=== PATIENT | female | born 1980 | race Caucasian/White ===

== ENCOUNTER → 2021-06-21 14:00 | Outpatient (CLI) | payer OTHER, SELFPAY ==
--- NOTE | ~2021-06-21 | MM_ITS ---
EXAMINATION: MM scrn kiah implant BI w adilene HISTORY: Screening mammogram TECHNIQUE: Craniocaudal and mediolateral oblique 3-D tomosynthesis images with implant displacement a nd synthetic 2-D images were generated. Craniocaudal and mediolateral oblique views of the breasts wi thout implant displacement were obtained using full field digital mammography. CAD analysis was submi tted and interpreted. COMPARISON: No prior mammogram is available for comparison at this institution. BREAST PARENCHYMAL COMPOSITION: There are scattered areas of fibroglandular density. FINDINGS: There is focal asymmetry in the upper outer quadrant of the right breast near the areola. T here are no suspicious masses, calcifications or architectural distortion breast to suggest malignanc y. There are subpectoral breast implants. IMPRESSION: 1. Focal right breast asymmetry upper outer quadrant near the areola. 2. Additional mammographic views and possible breast ultrasound are recommended. BI-RADS Category 0: Incomplete: Needs additional imaging evaluation. Reviewed, dictated and finalized at location A. IMPRESSION: 1. Focal right breast asymmetry upper outer quadrant near the areola. 2. Additional mammographic views and possible breast ultrasound are recommended . BI-RADS Category 0: Incomplete: Needs additional imaging evaluation.
== END ==
PROVIDERS: PCP Family Medicine; Visit Provider Family Medicine
DX: Z12.31 Encounter for screening mammogram for malignant neoplasm of breast (principal); R92.8 Other abnormal and inconclusive findings on diagnostic imaging of breast
CPT/HCPCS: 77063; 77067

== ENCOUNTER → 2021-07-02 14:13 | Outpatient (CLI) | payer OTHER, SELFPAY ==
--- NOTE | ~2021-07-02 | US_ITS ---
EXAMINATION: US pelvic complete DATE: 07/02/2021 14:42 INDICATION: Abnormal uterine bleeding. TECHNIQUE: Multiple transabdominal sonographic images of the pelvis were obtained. COMPARISON: None. FINDINGS: The uterus measures 8.7 x 4.2 x 4.5 cm. There is no free fluid in the pelvis. The endometrial complex measures 10 mm in thickness. The right ovary measures 2.5 x 2.0 x 2.6 cm. The left ovary measures 2. 7 x 1.7 x 2.4 cm. There is normal vascular flow in the ovaries. IMPRESSION: 1. Normal pelvis. Reviewed, dictated and finalized at location A. IMPRESSION: 1. Normal pelvis.
== END ==
PROVIDERS: Visit Provider Nurse Practitioner
DX: N93.8 Other specified abnormal uterine and vaginal bleeding (principal)
CPT/HCPCS: 76856

== ENCOUNTER → 2021-09-05 09:24 | Outpatient (CLI) | payer OTHER, SELFPAY ==
--- NOTE | ~2021-09-05 | MM_ITS ---
EXAMINATION: MM diag kiah implant RT w adilene HISTORY: Focal right breast asymmetry reported in upper outer quadrant subareolar area on 06/21/2021 s creening mammogram examinations TECHNIQUE: Additional 3-D tomosynthesis images of the right breast were performed and synthetic 2-D i mages were generated. CAD analysis was submitted and interpreted. High resolution targeted subareolar and upper outer quadrant right breast ultrasound was performed. COMPARISON: 06/21/2021 bilateral screening mammogram FINDINGS: MAMMOGRAPHIC FINDINGS: No suspicious mass, architectural distortion, malignant calcification, skin thickening or retraction is detected. ULTRASOUND: Targeted ultrasound in the subareolar area and upper outer quadrant reveals no suspicious mass, shado wing or other significant sonographic abnormality. IMPRESSION: 1. No mammographic evidence of malignancy 2. Routine annual mammographic screening is recommended. BI-RADS Category 1: Negative Reviewed, dictated and finalized at location A. US ROUSTABOUT
--- NOTE | ~2021-09-05 | US_ITS ---
US breast RT limited DATE: 09/05/2021 10:18 INDICATION: Asymmetry reported on 06/21/2021 bilateral screening mammogram examination TECHNIQUE: High-resolution ultrasound imaging of the subareolar area and upper outer quadrant of the right breast COMPARISON: 06/21/2021 bilateral implant screening mammogram FINDINGS: No suspicious mass or shadowing or other significant sonographic abnormality is detected. IMPRESSION: BI-RADS Category 1: Negative Reviewed, dictated and finalized at Location A. Reviewed, dictated and finalized at location A. GE MANAGEMENT COORDINATOR
== END ==
PROVIDERS: PCP Family Medicine; Visit Provider Nurse Practitioner Family
DX: R92.8 Other abnormal and inconclusive findings on diagnostic imaging of breast (principal)
CPT/HCPCS: 76642; 77061; 77065; G0279

== ENCOUNTER 2022-07-30 14:07 | Emergency (ER) | payer OTHER, SELFPAY ==
--- NOTE | ~2022-07-30 | CT_ITS ---
EXAMINATION: CT brain wo con DATE: 07/30/2022 18:13 INDICATION: Paresthesias . TECHNIQUE: Computed tomography (CT) of the head was performed without intravenous contrast. The mA wa s adjusted according to patient size. Iterative reconstruction technique was employed. The dose-lengt h product was 605.33 mGy-cm. COMPARISON: None FINDINGS: No acute intracranial hemorrhage or extra-axial fluid collection. No hydrocephalus, mass, or herniation. No acute ischemic infarct. Unremarkable dural venous sinus attenuation. No acute osseous abnormality. The aerated spaces are clear. IMPRESSION: No acute intracranial process. Reviewed, dictated and finalized at location K. E MIXING SUPERVISOR
--- NOTE | ~2022-07-30 | XR_ITS ---
EXAMINATION: XR chest 2V DATE: 07/30/2022 14:58 INDICATION: Left arm tingling. Right-sided shooting chest pain. TECHNIQUE: PA and lateral views of the chest were obtained. COMPARISON: None FINDINGS: The lungs are clear with no focal airspace opacities, pulmonary edema, pleural effusion or pneumothor ax. The cardiomediastinal silhouette is normal. Bilateral breast implants. Calcified mediastinal lymp h nodes consistent with old granulomatous disease. IMPRESSION: 1. No acute cardiopulmonary disease. Reviewed, dictated and finalized at location A. RDS MANAGEMENT ANALYST
--- NOTE | 2022-07-30 14:08 | ECG_ITS ---
Measurements Intervals [place] Rate: 72 P: 52 TX: 134 QRS: 57 QRSD: 85 T: 42 QT: 367 QTc: 403 Interpretive Statements SINUS RHYTHM BASELINE ARTIFACT- I, AVR, AVL NORMAL ECG NO PREVIOUS ECG AVAILABLE FOR COMPARISON Electronically Signed On 07-30-2022 14:20:52 VACUUM CONDITIONER OPERATOR by Michael Lorenz D.O.
[2022-07-30 14:17] VITALS: BP 119/73; PULSE 75; RESP 16; TEMP 37.2; O2SAT 100
[2022-07-30 14:44] LABS: Basophils Absolute Auto 0.1 K/mm3 (0.0-0.1); Basophils Percent Auto 0.8 % (0.2-1.2); Eosinophils Absolute Auto 0.3 K/mm3 (0-0.3); Eosinophils Percent Auto 5.4 % (0-4.4); Hematocrit 42.4 % (37.0-47.0); Hemoglobin 14.4 g/dL (12.0-15.0); Immature Granulocyte Absolute 0.02 K/mm3 (0.00-0.031); Immature Granulocyte Percent A 0.3 % (0-0.5); Lymphocytes Absolute Auto 2.38 K/mm3 (0.9-3.2); Lymphocytes Percent Auto 40.2 % (18.3-44.2); Mean Corpuscular Hemoglobin 33.3 pg (26-34); Mean Corpuscular Volume 98.1 fl (80-100); Mean Platelet Volume 10.2 fl (7.4-10.4); Monocytes Absolute Auto 0.4 K/mm3 (0.1-0.6); Monocytes Percent Auto 7.1 % (2.6-8.5); Neutrophils Absolute Auto 2.7 K/mm3 (1.3-6.7); Neutrophils Percent Auto 46.2 % (45.5-73.1); Platelet Count Result 235 k/mm3 (150-375); Red Blood Count 4.32 M/mm3 (4.2-5.4); Red Cell Distribution Width 11.8 % (11.5-14.5); White Blood Count 5.9 K/mm3 (4.5-10.0)
[2022-07-30 14:51] LABS: Alanine Aminotransferase 24 U/L (6-35); Alkaline Phosphatase 40 U/L (38-126); Anion Gap 14 mmol/L (8-16); Aspartate Amino Transferase 33 U/L (14-36); Bilirubin,Total 0.5 mg/dL (0.2-1.3); Blood Urea Nitrogen 15 mg/dL (7-17); Calcium 9.3 mg/dL (8.4-10.2); Carbon Dioxide 27 mmol/L (22-30); Chloride 100 mmol/L (98-107); Estimated CRCL calculation 74 ml/min; Estimated Glomerular Filt Rate > 60; Glucose 90 mg/dL (65-110); Lipase 140 U/L (23-300); Potassium 3.6 mmol/L (3.4-5.0); Sodium 141 mmol/L (137-145)
[2022-07-30 15:00] LABS: Troponin I < 0.012 ng/mL (0.000-0.034)
[2022-07-30 15:12] LABS: INR 0.9
--- NOTE | 2022-07-30 17:59 | ED.GENADULT ---
HPI - General Adult General Chief complaint: Unspecified <Gloria Sifuentes PA-C - Last Filed: 07/30/22 19:00> Stated complaint: left arm tingling <CRISTAL Sanchez Last Filed: 07/30/22 19:00> Time Seen by Provider: 07/30/22 17:35 <CRISTAL Sanchez Last Filed: 07/30/22 19:00> Source: patient <CRISTAL Sanchez Last Filed: 07/30/22 19:00> Mode of arrival: ambulatory <CRISTAL Sanchez Last Filed: 07/30/22 19:00> Limitations: no limitations <CRISTAL Sanchez Last Filed: 07/30/22 19:00> History of Present Illness HPI narrative: This is a 42-year-old female that presents to the emergency department for brief episode of chest pain that happened this afternoon. Reports she was walking in a parking lot and felt a shooting pain in the right side of her chest. After that she felt some tingling in her left arm. Since the symptoms have resolved. Denies fever, cough, shortness of breath, or lower extremity edema. <CRISTAL Sanchez Last Filed: 07/30/22 19:00> Related Data Home medications: Home Medications Medication Instructions Recorded Confirmed biotin 2,500 mcg capsule 2,500 mcg PO DAILY 05/07/21 04/17/22 multivitamin 1 tablet PO DAILY 05/07/21 04/17/22 <CRISTAL Sanchez Last Filed: 07/30/22 19:00> Allergies/adverse reactions: Allergies Allergy/AdvReac Type Severity Reaction Status Date / Time Penicillins Allergy Unknown reaction Verified 06/19/22 09:16 unknown, had as a child <CRISTAL Sanchez Last Filed: 07/30/22 19:00> Review of Systems Review of Systems: CONSTITUTIONAL: Denies fever CARDIOVASCULAR: Reports chest pain. Denies edema. RESPIRATORY: Denies cough or dyspnea. GASTROINTESTINAL: Denies abdominal pain, nausea, vomiting GENITOURINARY: Denies dysuria SKIN: Denies rash NEUROLOGIC: Denies current numbness, or weakness. PSYCHIATRIC: Reports anxiety <Gloria Sifuentes PA-C - Last Filed: 07/30/22 19:00> All systems reviewed & are unremarkable except as noted in HPI and below <Gloria Sifuentes PA-C - Last Filed: 07/30/22 19:00> PMFSH Past Medical History Medical History: Medical History BMI 22.0-22.9, adult Chest pain Family history of malignant neoplasm of colon in first degree relative diagnosed when younger than 60 years of age Hx of tear of ACL (anterior cruciate ligament) Menstrual periods irregular Screening for breast cancer Screening for lipid disorders <Gloria Sifuentes PA-C - Last Filed: 07/30/22 19:00> Surgical History Surgical History: Surgical History Hx of breast augmentation <Gloria Sifuentes PA-C - Last Filed: 07/30/22 19:00> Family History Family History: Family History Father Diabetes mellitus Heart disease Stented coronary artery Mother Colon cancer Grandparent Depression Cerebrovascular accident <Gloria Sifuentes PA-C - Last Filed: 07/30/22 19:00> Social History Social History: Social History Smoking status: Never smoker Alcohol intake: current Drinks per week: 2 Substance use: never Substance use type: does not use Additional living arrangements comments: 2 kids Additional occupation/education comments: Real Estate Gender identity (if verbalized by the patient): Female Sexual Orientation (if Verbalized by the Patient): Straight or Heterosexual Spiritual care concerns: No Agree to blood products: Yes <Gloria Sifuentes PA-C - Last Filed: 07/30/22 19:00> Exam Narrative: GENERAL: Well-appearing, well-nourished, and in no acute distress. HEAD: Normocephalic, atraumatic. EYES: EOMI. CHEST: Clear to auscultation. No respiratory distress. No wheezes rales or rhonchi HEART: Regular rate and rhythm.
[2022-07-30 18:02] VITALS: PULSE 73
--- NOTE | 2022-07-30 18:03 | PC.NURSE ---
no dose required per erp alie ramírez
[2022-07-30 18:16] LABS: Troponin I < 0.012 ng/mL (0.000-0.034)
[2022-07-30 18:28] LABS: D Dimer 0.34 ug/mL (<0.48)
[2022-07-30 19:10] VITALS: BP 120/78; PULSE 78; RESP 19; O2SAT 99
== END 2022-07-30 19:10 | disposition home or self-care (01) ==
PROVIDERS: Emergency Medicine; Physician Assistant; Emergency Provider Emergency Medicine; PCP Family Medicine
DX: R07.9 Chest pain, unspecified (principal)
CPT/HCPCS: 36415; 70450; 71046; 80053; 83690; 84484; 85025; 85380; 85610; 85730; 93005; 99284

== ENCOUNTER → 2022-10-04 13:40 | Outpatient (CLI) | payer OTHER, SELFPAY ==
--- NOTE | ~2022-10-04 | MM_ITS ---
EXAMINATION: MM scrn kiah implant BI w adilene HISTORY: Screening mammogram TECHNIQUE: Craniocaudal and mediolateral oblique 3-D tomosynthesis images with implant displacement a nd synthetic 2-D images were generated. Craniocaudal and mediolateral oblique views of the breasts wi thout implant displacement were obtained using full field digital mammography. CAD analysis was submi tted and interpreted. COMPARISON: 06/21/2021 BREAST PARENCHYMAL COMPOSITION: There are scattered areas of fibroglandular density. FINDINGS: There are bilateral subpectoral silicone implants. There is no evidence of suspicious mass, calcification, or architectural distortion to suggest malignancy in either breast. There has been no suspicious interval change. IMPRESSION: 1. No mammographic evidence of malignancy. 2. Recommend routine screening mammography in one year. BI-RADS Category 1: Negative Reviewed, dictated and finalized at location A. ETICS AND TOILETRIES SALESPERSON
== END ==
PROVIDERS: PCP Obstetrics & Gynecology Gynecology; Visit Provider Obstetrics & Gynecology Gynecology
DX: Z12.31 Encounter for screening mammogram for malignant neoplasm of breast (principal)
CPT/HCPCS: 77063; 77067

== ENCOUNTER 2023-01-03 00:11 | Day surgery (SDC) | payer OTHER, SELFPAY ==
[2022-12-20 13:22] VITALS: BMI 25.0
--- NOTE | 2023-01-02 14:26 | P.HP_ITS ---
History of Present Illness History of Present Illness Consent: Risks, benefits, and alternatives have been discussed and questions answered. Patient agrees to proceed with procedure. Chief complaint: family hx colon ca Narrative: Melly Haney is a 42 year old female Referred for colon cancer screening. She has a family history of colon cancer. Her mother and her paternal grandfather had colon cancer Review of Systems Review of Systems: All systems reviewed & are unremarkable except as noted in HPI and below PMFSH Past Medical History Medical History BMI 22.0-22.9, adult Chest pain Family history of malignant neoplasm of colon in first degree relative diagnosed when younger than 60 years of age Hx of tear of ACL (anterior cruciate ligament) Menstrual periods irregular Screening for breast cancer Screening for lipid disorders Surgical History Surgical History Hx of breast augmentation Family History Family History Father Diabetes mellitus Heart disease Stented coronary artery Mother Colon cancer Grandparent Depression Cerebrovascular accident Social History Social History Smoking status: Never smoker Alcohol intake: former Drinks per week: 2 Alcohol use details: 2 /WEEK IN THE PAST Substance use: never Substance use type: does not use Living arrangements: with family Additional living arrangements comments: 2 kids 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 Gender identity (if verbalized by the patient): Female Sexual Orientation (if Verbalized by the Patient): Straight or Heterosexual Spiritual care concerns: No Agree to blood products: Yes Meds Home Medications and Allergies Home Medications Medication Instructions Recorded Confirmed Type multivitamin 1 tablet PO DAILY 05/07/21 01/03/23 History Allergies Allergy/AdvReac Type Severity Reaction Status Date / Time Penicillins Allergy Unknown reaction Verified 01/03/23 11:32 unknown, had as a child Exam 2 Const: General: alert Orientation/consciousness: patient oriented x3 Resp: Auscultation: clear to auscultation bilaterally Cardio: Rhythm: regular rhythm GI: GI Palp: Yes Soft to palpation and No Tenderness to palpation present (GI) Neuro: General: patient oriented x3 Assessment and Plan Assessment and plan (1) Colon cancer screening: Code(s): Z12.11 - Encounter for screening for malignant neoplasm of colon Status: Acute Assessment and Plan: Colonoscopy with possible biopsy or polypectomy or cautery or injection of substances.
[2023-01-03 11:38] VITALS: BP 116/63; PULSE 77; RESP 18; TEMP 36.5; O2SAT 99
[2023-01-03] MEDS: LACTATED RINGERS 1,000 ML 150 ML IV CONT (11:41)
--- NOTE | 2023-01-03 12:27 | P.PNAN_ITS ---
Anes - Initial Pre Proc Eval Procedure: Operation Date: 01/03/23 13:00 Proposed Procedures p Screening Colonoscopy - Aly Fairbanks MD Date/Time: 01/03/23 12:27 Surgeon: Aly Fairbanks MD Pre Op Diagnosis: family hx colon ca Patient Data Age: 42 Gender: F Height: 1.6 m Weight: 63.4 kg Last Vital Signs Temp 97.7 F 01/03/23 11:38 Pulse 77 01/03/23 11:38 Resp 18 01/03/23 11:38 BP 116/63 01/03/23 11:38 Pulse Ox 99 01/03/23 11:38 O2 Del Method Room Air 01/03/23 11:38 Allergies Allergy/AdvReac Type Severity Reaction Status Date / Time Penicillins Allergy Unknown reaction Verified 01/03/23 11:32 unknown, had as a child Home Medications Medication Instructions Recorded Confirmed Type multivitamin 1 tablet PO DAILY 05/07/21 01/03/23 History Patient hx anesthesia problems: none Family hx anesthesia problems: none Results Review: All pre-operative results and documents have been reviewed as part of the pre- operative evaluation. [facility] Past Medical History Medical History BMI 22.0-22.9, adult Chest pain Family history of malignant neoplasm of colon in first degree relative diagnosed when younger than 60 years of age Hx of tear of ACL (anterior cruciate ligament) Menstrual periods irregular Screening for breast cancer Screening for lipid disorders Surgical History Surgical History Hx of breast augmentation Family History Family History Father Diabetes mellitus Heart disease Stented coronary artery Mother Colon cancer Grandparent Depression Cerebrovascular accident Social History Social History Smoking status: Never smoker Alcohol intake: former Drinks per week: 2 Alcohol use details: 2 /WEEK IN THE PAST Substance use: never Substance use type: does not use Living arrangements: with family Additional living arrangements comments: 2 kids 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 Gender identity (if verbalized by the patient): Female Sexual Orientation (if Verbalized by the Patient): Straight or Heterosexual Spiritual care concerns: No Agree to blood products: Yes Anes - Eval Final PreProcedure Day of Procedure 01/03/23 12:27 Patient weight: normal Heart: regular rate and rhythm Lungs: clear to auscultation Airway: Mallampati scale class II Neurological: alert and oriented Last oral intake: >/= 8 hours ASA classification: II Emergent: no Anesthetic plan: proceed Anesthesia type and monitoring: general GIVS and standard monitoring Results Review: All pre-operative results and documents have been reviewed as part of the pre- operative evaluation. Informed Consent: The patient's anesthetic plan and its attendant risks and benefits were discussed with the patient/family/POA. Questions were solicited and answers provided to the satisfaction of the patient/family/POA.
[2023-01-03 13:15] VITALS: BP 94/58; PULSE 68; RESP 20; O2SAT 99
[2023-01-03 13:25] VITALS: BP 92/57; PULSE 64; RESP 18; O2SAT 99
[2023-01-03 13:35] VITALS: BP 100/61; PULSE 61; RESP 23; O2SAT 100
== END 2023-01-03 13:40 | disposition home or self-care (01) ==
PROVIDERS: PCP Family Medicine; Referring Provider Obstetrics & Gynecology Gynecology; Visit Provider Internal Medicine Gastroenterology
PROC: 0DJD8ZZ Inspection of Lower Intestinal Tract, Via Natural or Artificial Opening Endoscopic (ICD-10-PCS; CPT 45378; principal; 2023-01-03 13:00)
DX: Z12.11 Encounter for screening for malignant neoplasm of colon (principal); Z80.0 Family history of malignant neoplasm of digestive organs
CPT/HCPCS: 45378; J2704; J7120

== ENCOUNTER 2023-09-09 08:59 | Emergency (ER) | payer OTHER, SELFPAY ==
--- NOTE | 2023-09-09 09:02 | ED.URI ---
HPI - URI/Sore Throat General Chief Complaint: Upper Respiratory Infection Stated Complaint: Sore throat;Congestion Time Seen by Provider: 09/09/23 09:08 Source: patient, RN notes reviewed and old records reviewed Mode of arrival: ambulatory Limitations: no limitations History of Present Illness HPI Narrative: [age] year old female presents to the [facility] with complaints of a sore throat and congestion that started on Friday, 2 days ago. Has been taking DayQuil and NyQuil. States she had a cough the 1st day. Denies any fevers. Denies chest pain, abdominal pain. MD elicited complaint: sore throat and nasal congestion Onset (ago): day(s) (2) Treatments prior to arrival: cold medicine Related Data Home Medications Medication Instructions Recorded Confirmed multivitamin 1 tablet PO DAILY 05/07/21 01/03/23 Allergies Allergy/AdvReac Type Severity Reaction Status Date / Time Penicillins Allergy Unknown reaction Verified 01/03/23 11:32 unknown, had as a child Review of Systems Review of Systems: All systems reviewed & are unremarkable except as noted in HPI and below Constitutional: Constitutional: Reports no additional constitutional complaints Eyes: Eyes: Reports no additional eye complaints ENT: Reports as per HPI, Reports nasal congestion and Reports sore throat Cardiovascular: Cardiovascular: Reports no additional cardiovascular complaints, Denies chest pain and Denies dyspnea Respiratory: Respiratory: Reports no additional respiratory complaints, Denies chest congestion, Denies cough and Denies dyspnea Gastrointestinal: Gastrointestinal: Reports no additional gastrointestinal complaints, Denies abdominal pain, Denies nausea and Denies vomiting Musculoskeletal: Musculoskeletal: Reports no additional musculoskeletal complaints Integumentary/Breasts: Skin/Breast: Reports system reviewed and no additional complaints, except as docu Neurologic: Reports system reviewed and no additional complaints, except as documented Psychiatric: Psychiatric: Reports no additional psychiatric complaints Allergic/Immunologic: Allergic/Immunologic: Reports no additional allergic/immunologic complaints PMFSH Past Medical History Medical History BMI 22.0-22.9, adult Chest pain Family history of malignant neoplasm of colon in first degree relative diagnosed when younger than 60 years of age Hx of tear of ACL (anterior cruciate ligament) Menstrual periods irregular Screening for breast cancer Screening for lipid disorders Surgical History Surgical History Hx of breast augmentation Family History Family History Father Diabetes mellitus Heart disease Stented coronary artery Mother Colon cancer Grandparent Depression Cerebrovascular accident Social History Social History Smoking status: Never smoker Alcohol intake: former Drinks per week: 2 Alcohol use details: 2 /WEEK IN THE PAST Substance use: never Substance use type: does not use Living arrangements: with family Additional living arrangements comments: 2 kids 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 There is no relevant family history pertinent to the patient complaint. Exam Const: General: cooperative, healthy appearing, comfortable, no acute distress, well developed, alert and well nourished Nutritional Appearance: well nourish
[2023-09-09 09:09] VITALS: BP 105/67; PULSE 76; RESP 16; TEMP 37.1; O2SAT 98
== END 2023-09-09 09:26 | disposition home or self-care (01) ==
PROVIDERS: Emergency Provider Nurse Practitioner; PCP Internal Medicine
DX: J06.9 Acute upper respiratory infection, unspecified (principal)
CPT/HCPCS: 87081; 87880; 99213; G0463

== ENCOUNTER → 2023-10-07 10:19 | Outpatient (CLI) | payer OTHER, SELFPAY ==
--- NOTE | ~2023-10-07 | MM_ITS ---
EXAMINATION: MM scrn kiah implant BI w adilene HISTORY: Screening mammogram TECHNIQUE: Craniocaudal and mediolateral oblique 3-D tomosynthesis images with implant displacement a nd synthetic 2-D images were generated. Craniocaudal and mediolateral oblique views of the breasts wi thout implant displacement were obtained using full field digital mammography. CAD analysis was submi tted and interpreted. COMPARISON: Comparison to multiple prior studies sequentially, with oldest reviewed study dated 06/21. BREAST PARENCHYMAL COMPOSITION: Breast composed of scattered areas of fibroglandular density FINDINGS: There is no evidence of suspicious mass, calcification, or architectural distortion to sugg est malignancy in either breast. There has been no suspicious interval change. IMPRESSION: 1. No mammographic evidence of malignancy. 2. Recommend routine screening mammography in one year. BI-RADS Category 1: Negative Reviewed, dictated and finalized at location A. SIZER OPERATOR
== END ==
PROVIDERS: PCP Nurse Practitioner; Visit Provider Nurse Practitioner
DX: Z12.31 Encounter for screening mammogram for malignant neoplasm of breast (principal)
CPT/HCPCS: 77063; 77067

== ENCOUNTER 2024-08-12 23:48 | Emergency (ER) | payer OTHER, SELFPAY ==
[2024-08-12 23:51] VITALS: BP 120/77; PULSE 74; RESP 18; TEMP 37.1; O2SAT 100
--- NOTE | 2024-08-13 01:30 | PC.NURSE ---
0115: pt came up to desk and ask how much longer it would be. This Rn explained the process of triage and told pt we have some rooms opening up and getting cleaned so hopefully we can get pts back soon. Pt then states she will wait a bit more. 0131: Pt comes back up to lead front end developer and states she wants to come back in the morning and would like to go home. Pt left without being seen by provider.
== END 2024-08-13 01:31 | disposition left against medical advice (07) ==
PROVIDERS: PCP Nurse Practitioner
DX: R10.9 Unspecified abdominal pain (principal)
CPT/HCPCS: 99199

== ENCOUNTER 2024-10-11 11:57 | Outpatient (CLI) | payer OTHER, SELFPAY ==
--- NOTE | ~2024-10-11 | MM_ITS ---
EXAMINATION: MM scrn kiah implant BI w adilene HISTORY: Comparison to multiple prior studies sequentially, with oldest reviewed study dated 06/21/20 21. TECHNIQUE: Craniocaudal and mediolateral oblique 3-D tomosynthesis images with implant displacement a nd synthetic 2-D images were generated. Craniocaudal and mediolateral oblique views of the breasts wi thout implant displacement were obtained using full field digital mammography. CAD analysis was submi tted and interpreted. COMPARISON: No prior mammogram is available for comparison at this institution. BREAST PARENCHYMAL COMPOSITION: There are scattered areas of fibroglandular density. FINDINGS: There is no evidence of suspicious mass, calcification, or architectural distortion to sugg est malignancy in either breast. There has been no suspicious interval change. IMPRESSION: 1. No mammographic evidence of malignancy. 2. Recommend routine screening mammography in one year. BI-RADS Category 1: Negative Reviewed, dictated and finalized at location A. NG HANGER
== END 2024-10-11 11:58 | disposition home or self-care (01) ==
LOC: MICIMG 11:58
PROVIDERS: PCP Nurse Practitioner; Visit Provider Nurse Practitioner
DX: Z12.31 Encounter for screening mammogram for malignant neoplasm of breast (principal); Z98.82 Breast implant status
CPT/HCPCS: 77063; 77067